=== PATIENT | female | born 1945 | race Caucasian/White ===

== ENCOUNTER 2021-10-03 14:55 | Inpatient (IN) | payer MEDICARE, OTHER ==
[2021-10-03] MEDS ORDERED: Sodium Chloride 0.9% 10 ML Syringe FLUSH PRN (15:21)
[2021-10-03 16:36] LABS: CHLORIDE,CL 108 mmol/L (98-107); SODIUM,NA 144 mmol/L (136-145)
[2021-10-03 16:38] LABS: O2 DELIVERY DEVICE NASAL CANNULA; PCO2 ARTERIAL 30 mmHG (35-45)
[2021-10-03 16:39] LABS: BICARBONATE,ARTERIAL 20.6 mmol/L (22-26); O2 SATURATION ARTERIAL 95 % (95-98); PO2 ARTERIAL 71 mmHG (80-105)
[2021-10-03 16:40] LABS: BASE EXCESS ARTERIAL -2 mmol/L (-2-3)
--- NOTE | 2021-10-03 16:41 | EDM.PDOC ---
ED HPI GENERAL MEDICAL PROBLEM - General Chief Complaint: Respiratory Problem Stated Complaint: chest pain, SOB Time Seen by Provider: 10/03/21 15:20 Source of Information: Reports: Patient History Limitations: Reports: No Limitations - History of Present Illness INITIAL COMMENTS - FREE TEXT/NARRATIVE: Patient presents to the Ed with shortness of breath, episode of syncope by EMS. 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 She states she has been dealing with a cough, shortness of breath and fatigue for the last month. She was seen by her PCP and started on some inhalers for this after a normal work up of labs, ekg and chest x-ray yesterday. She did drive herself to [place] with her granddaughter. She was advised to get a Chest CT with PE protocol by her doctor yesterday on her way home to rule out PE due to history of PE < 5 yesterday ago following surgery. She had been maintained on coumadin up until a month ago. She was unable to find the imaging center in [place] yesterday on her way home so she decided to just go home because she was tired. She struggled to get herself into the house due to fatigue and shortness of breath so once inside she rested on a kitchen chair. She had a syncopal event and awoke on the floor. No loss of bowel or bladder, was too weak to get herself up off the floor so slid/crawled to her bed and managed to get in. Stayed there all night. This morning her attempted to get out of bed but was too weak. Her doctors office called to see if she had gotten the chest ct and when they heard of the events that had transpired, told her to call ems. EMS was dispatched. it was not reported the O2 sat, but they placed her on 15 lpm NRB. They did decrease this over transport to 5 lpm with sats in mid 90s. afebrile. on Room air at traige she is 88%, placed on 4-5 lpm NC. no sick contacts, fully vaccinated with booster dose two weeks ago. did start coumadin yesteday x 1 dose at the instruction of her physician . Onset: Sudden Onset Date: 10/02/21 Duration: Constant Associated Symptoms: Reports: Malaise, Syncope, Weakness Treatments PROPOSAL REP: Reports: Other (see below) (one dose of coumadin) - Related Data Allergies Allergy/AdvReac Type Severity Reaction Status Date / Time aspirin Allergy Airway Verified 10/03/21 16:46 Tightness Home Meds: Home Meds Ferrous Sulfate 325 mg PO Q2D 10/03/21 [History] Fluticasone/Salmeterol [Advair 500-50] 2 puff INH BID 10/03/21 [History] Montelukast [Singulair] 10 mg PO DAILY 10/03/21 [History] Warfarin [Coumadin] 5 mg PO DAILY@1000 10/03/21 [History] Past Medical History Respiratory History: Reports: PE - Past Surgical History Musculoskeletal Surgical History: Reports: Joint Replacement (bilateral fareed) Social & Family History - Tobacco Use Tobacco Use Status *Q: Never Tobacco User - Alcohol Use Alcohol Use History: Yes Alcohol Use in Last Twelve Months: Yes Alcohol Use Frequency: Socially - Recreational Drug Use Recreational Drug Use: No Drug Use in Last 12 Months: No - Living Situation & Occupation Living situation: Reports: Alone ED ROS GENERAL - Review of Systems Review Of Systems: See Below Constitutional: Reports: Malaise, Weakness, Fatigue HEENT: Denies: Eye Discharge, Nose Pain, Rhinitis, Sinus Problem, Throat Pain, Throat Swelling Respiratory: Reports: Shortness of Breath, Cough. Denies: Pleuritic Chest Pain, Sputum, Hemoptysis Cardiovascular: Reports: No Symptoms, Dyspnea on Exertion, Lightheadedness, Syncope GI/Abdominal: Reports: No Symptoms. Denies: Abdominal Pain, Diarrhea, Nausea, Vomiting : Reports: No Symptoms Musculoskeletal: Reports: No Symptoms Neurological: Reports: Syncope, Weakness Psychiatric: Reports: No Symptoms Hematologic/Lymphatic: Reports: No Symptoms Immunologic: Reports: No Symptoms ED EXAM, GENERAL - Physical Exam Exam: See Below Exam Limited By: No Limitations General Appearance: Alert, WD/WN, No Apparent Distress Eye Exam: Bilateral Eye: EOMI, Normal Inspection, PERRL Ears: Normal External Exam Nose: Normal Inspection Throat/Mouth: Normal Inspection, Normal Lips, Normal Oropharynx, Normal Voice, No Airway Compromise Head: Atraumatic Neck: Normal Inspection Respiratory/Chest: No Respiratory Distress, Lungs Clear, Normal Breath Sounds, No Accessory Muscle Use, Chest Non-Tender Cardiovascular: Normal Peripheral Pulses, Regular Rate, Rhythm GI/Abdominal: Normal Bowel Sounds, Soft, Non-Tender, No Distention, No Abnormal Bruit. No: Rigid, Rebound Extremities: Normal Inspection, Normal Range of Motion, Non-Tender, No Pedal Edema, Normal Capillary Refill Neurological: Alert, Oriented, CN II-XII Intact, Normal Cognition, No Motor/Sensory Deficits, Other (normal finger to nose with eyes closed, YAA, negative pronator drift, noraml heel to mehta, normal stength upper and lower extremities, normal speech. ahs capacity) #1 Interpretation EKG Date: 10/03/21 Time: 15:08 Rhythm: NSR Rate (Beats/Min): 98 [employer]: Normal P-Wave: Present QRS: Normal ST-T: Normal QT: Normal Course - Vital Signs Last Recorded V/S: Last Vital Signs Temp 36.2 C 10/03/21 18:25 Pulse 98 10/03/21 18:25 Resp 20 10/03/21 18:25 BP 134/65 10/03/21 18:25 Pulse Ox 98 10/03/21 18:25 - Orders/Labs/Meds Orders: Active Orders 24 hr Category Date Time Status Admission Status [Patient Status] [ADT] Routine ADT 10/03/21 17:49 Active Cardiac Monitoring Discontinue [RC] Click to Edit Care 10/03/21 15:21 Active Oxygen Therapy Adult [Oxygen Therapy, ED] [RC] Care 10/03/21 15:21 Active ASDIRECTED Peripheral IV Care [RC] . DIRECTED Care 10/03/21 15:22 Active Ang Chest [CT] Stat Exams 10/03/21 16:42 Taken CULTURE BLOOD [BC] Stat Lab 10/03/21 16:01 Received CULTURE BLOOD [BC] Stat Lab 10/03/21 16:08 Received Heparin Sodium/0.45% NaCl [Heparin 25,000 Units in 1/2 Med 10/03/21 17:00 Active NS 500 ML] 500 ml IV TITRATE Sodium Chloride 0.9% [Saline Flush] Med 10/03/21 15:21 Active 10 ml FLUSH ASDIRECTED PRN Blood Culture x2 Reflex Set [OM.PC] Stat Oth 10/03/21 15:22 Ordered Peripheral IV Insertion Adult [OM.PC] Routine Oth 10/03/21 15:21 Ordered Medication Orders Acetaminophen (Acetaminophen 325 Mg Tab) 650 mg PO Q4H PRN PRN Reason: analgesia/fever Calcium Carbonate/Glycine (Calcium Carbonate 500 Mg Tab.Chew) 500 mg PO Q4H PRN PRN Reason: Dyspepsia Ferrous Sulfate (Ferrous Sulfate 325 Mg Tab) 325 mg PO Q2D MANJU Heparin Sodium/Sodium Chloride (Heparin 25,000 Units In 1/2 Ns 500 Ml) 500 mls @ 21.772 mls/hr IV TITRATE MANJU; Protocol Last Admin: 10/03/21 18:18 Dose: 12 units/kg/hr, 21.772 mls/hr Documented by: YESSENIA Cosigned by: ANA Melatonin (Melatonin 3 Mg Tab) 6 mg PO BEDTIME PRN PRN Reason: Insomnia Montelukast Sodium (Montelukast 10 Mg Tab) 10 mg PO DAILY MANJU Non-Formulary Medication (Fluticasone/Salmeterol) 2 puff INH BID MANJU Sodium Chloride (Sodium Chloride 0.9% 10 Ml Syringe) 10 ml FLUSH ASDIRECTED PRN PRN Reason: Keep Vein Open Labs: Laboratory Tests 10/03/21 10/03/21 10/03/21 Range/Units 16:00 16:01 16:01 WBC 10.2 (4.0-10.2) K/uL RBC 5.08 (3.77-5.09) M/uL Hgb 13.8 (11.7-15.5) g/dL Hct 41.5 (34.0-46.0) % MCV 81.7 L (84.0-98.0) fL MCH 27.2 L (28.2-33.3) pg MCHC 33.3 (31.7-36.0) g/dL RDW 20.7 H (11.2-14.1) % Plt Count 243 (150-350) K/uL Neut % (Auto) 73.0 (45.0-80.0) % Lymph % (Auto) 15.5 (10.0-50.0) % Frio % (Auto) 10.9 (2.0-14.0) % Eos % (Auto) 0.3 (0.0-5.0) % Baso % (Auto) 0.3 (0.0-2.0) % Neut # (Auto) 7.47 H (1.40-7.00) K/uL Lymph # (Auto) 1.58 (0.50-3.50) K/uL Frio # (Auto) 1.11 H (0.00-1.00) K/uL Eos # (Auto) 0.03 (0.00-0.50) K/uL Baso # (Auto) 0.03 (0.00-0.20) K/uL PT (9.6-11.3) SEC INR D-Dimer, Quantitative 4250 H (0-400) ng/mL ABG pH (7.35-7.45) ABG pCO2 (35-45) mmHG ABG pO2 (80-105) mmHG ABG HCO3 (22-26) mmol/L ABG Total CO2 (23-27) mmol/L ABG O2 Saturation (95-98) % ABG Base Excess (-2-3) mmol/L O2 Delivery Device Blood Gas Comments Sodium (136-145) mmol/L Potassium (3.5-5.1) mmol/L Chloride (98-107) mmol/L Carbon Dioxide (21.0-32.0) mmol/L Anion Gap (7-15) meq/L BUN (7-18) mg/dL Creatinine (0.51-1.17) mg/dL Est Cr Clr Drug Dosing Estimated GFR (MDRD) mL/min Glucose (70-99) mg/dL Lactic Acid (0.4-2.0) mmol/L Calcium (8.5-10.1) mg/dL Total Bilirubin (0.2-1.0) mg/dL AST (15-37) U/L ALT (12-78) U/L Alkaline Phosphatase (46-116) IU/L Troponin I High Sens (<=51) ng/L C-Reactive Protein (<=0.9) mg/dL Total Protein (6.4-8.2) g/dL Albumin (3.4-5.0) g/dL Influenza Type A RNA Negative (NEGATIVE) RSV RNA (INAAT) Negative (NEGATIVE) Influenza Type B RNA Negative (NEGATIVE) SARS-CoV-2 RNA (TY) Negative (NEGATIVE) 10/03/21 10/03/21 10/03/21 Range/Units 16:01 16:01 16:01 WBC (4.0-10.2) K/uL RBC (3.77-5.09) M/uL Hgb (11.7-15.5) g/dL Hct (34.0-46.0) % MCV (84.0-98.0) fL MCH (28.2-33.3) pg MCHC (31.7-36.0) g/dL RDW (11.2-14.1) % Plt Count (150-350) K/uL Neut % (Auto) (45.0-80.0) % Lymph % (Auto) (10.0-50.0) % Frio % (Auto) (2.0-14.0) % Eos % (Auto) (0.0-5.0) % Baso % (Auto) (0.0-2.0) % Neut # (Auto) (1.40-7.00) K/uL Lymph # (Auto) (0.50-3.50) K/uL Frio # (Auto) (0.00-1.00) K/uL Eos # (Auto) (0.00-0.50) K/uL Baso # (Auto) (0.00-0.20) K/uL PT 10.3 (9.6-11.3) SEC INR 1.0 D-Dimer, Quantitative (0-400) ng/mL ABG pH (7.35-7.45) ABG pCO2 (35-45) mmHG ABG pO2 (80-105) mmHG ABG HCO3 (22-26) mmol/L ABG Total CO2 (23-27) mmol/L ABG O2 Saturation (95-98) % ABG Base Excess (-2-3) mmol/L O2 Delivery Device Blood Gas Comments Sodium 144 (136-145) mmol/L Potassium 4.2 (3.5-5.1) mmol/L Chloride 108 H (98-107) mmol/L Carbon Dioxide 22.5 (21.0-32.0) mmol/L Anion Gap 17.7 H (7-15) meq/L BUN 20 H (7-18) mg/dL Creatinine 1.26 H (0.51-1.17) mg/dL Est Cr Clr Drug Dosing TNP Estimated GFR (MDRD) 41 mL/min Glucose 97 (70-99) mg/dL Lactic Acid 1.7 (0.4-2.0) mmol/L Calcium 9.2 (8.5-10.1) mg/dL Total Bilirubin 0.4 (0.2-1.0) mg/dL AST 30 (15-37) U/L ALT 24 (12-78) U/L Alkaline Phosphatase 165 H (46-116) IU/L Troponin I High Sens 318 H* (<=51) ng/L C-Reactive Protein 2.1 H (<=0.9) mg/dL Total Protein 7.7 (6.4-8.2) g/dL Albumin 3.6 (3.4-5.0) g/dL Influenza Type A RNA (NEGATIVE) RSV RNA (INAAT) (NEGATIVE) Influenza Type B RNA (NEGATIVE) SARS-CoV-2 RNA (TY) (NEGATIVE) 10/03/21 Range/Units 16:34 WBC (4.0-10.2) K/uL RBC (3.77-5.09) M/uL Hgb (11.7-15.5) g/dL Hct (34.0-46.0) % MCV (84.0-98.0) fL MCH (28.2-33.3) pg MCHC (31.7-36.0) g/dL RDW (11.2-14.1) % Plt Count (150-350) K/uL Neut % (Auto) (45.0-80.0) % Lymph % (Auto) (10.0-50.0) % Frio % (Auto) (2.0-14.0) % Eos % (Auto) (0.0-5.0) % Baso % (Auto) (0.0-2.0) % Neut # (Auto) (1.40-7.00) K/uL Lymph # (Auto) (0.50-3.50) K/uL Frio # (Auto) (0.00-1.00) K/uL Eos # (Auto) (0.00-0.50) K/uL Baso # (Auto) (0.00-0.20) K/uL PT (9.6-11.3) SEC INR D-Dimer, Quantitative (0-400) ng/mL ABG pH 7.45 (7.35-7.45) ABG pCO2 30 L (35-45) mmHG ABG pO2 71 L* (80-105) mmHG ABG HCO3 20.6 L (22-26) mmol/L ABG Total CO2 21 L (23-27) mmol/L ABG O2 Saturation 95 (95-98) % ABG Base Excess -2 (-2-3) mmol/L O2 Delivery Device Nasal cannula Blood Gas Comments 5 mins liter Sodium (136-145) mmol/L Potassium (3.5-5.1) mmol/L Chloride (98-107) mmol/L Carbon Dioxide (21.0-32.0) mmol/L Anion Gap (7-15) meq/L BUN (7-18) mg/dL Creatinine (0.51-1.17) mg/dL Est Cr Clr Drug Dosing Estimated GFR (MDRD) mL/min Glucose (70-99) mg/dL Lactic Acid (0.4-2.0) mmol/L Calcium (8.5-10.1) mg/dL Total Bilirubin (0.2-1.0) mg/dL AST (15-37) U/L ALT (12-78) U/L Alkaline Phosphatase (46-116) IU/L Troponin I High Sens (<=51) ng/L C-Reactive Protein (<=0.9) mg/dL Total Protein (6.4-8.2) g/dL Albumin (3.4-5.0) g/dL Influenza Type A RNA (NEGATIVE) RSV RNA (INAAT) (NEGATIVE) Influenza Type B RNA (NEGATIVE) SARS-CoV-2 RNA (TY) (NEGATIVE) Meds: Medications Generic Name Dose Route Start Last Admin Trade Name Freq PRN Reason Stop Dose Admin Acetaminophen 650 mg 10/03/21 19:49 Acetaminophen 325 Mg Tab PO Q4H PRN analgesia/fever Calcium Carbonate/Glycine 500 mg 10/03/21 19:49 Calcium Carbonate 500 Mg Tab.Chew PO Q4H PRN Dyspepsia Ferrous Sulfate 325 mg 10/03/21 20:00 Ferrous Sulfate 325 Mg Tab PO Q2D MANJU Heparin Sodium/Sodium Chloride 500 mls @ 21.772 mls/hr 10/03/21 17:00 10/03/21 18:18 Heparin 25,000 Units In 1/2 Ns 500 Ml IV 12 units/kg/hr TITRATE MANJU 21.772 mls/hr Administration Protocol 12 UNITS/KG/HR Melatonin 6 mg 10/03/21 19:49 Melatonin 3 Mg Tab PO BEDTIME PRN Insomnia Montelukast Sodium 10 mg 10/04/21 08:00 Montelukast 10 Mg Tab PO DAILY MANJU Non-Formulary Medication 2 puff 10/04/21 08:00 Fluticasone/Salmeterol INH BID MANJU Sodium Chloride 10 ml 10/03/21 15:21 Sodium Chloride 0.9% 10 Ml Syringe FLUSH ASDIRECTED PRN Keep Vein Open Discontinued Medications Generic Name Dose Route Start Last Admin Trade Name Freq PRN Reason Stop Dose Admin Heparin Sodium (Porcine) Confirm 10/03/21 17:29 10/03/21 18:18 Heparin Sodium 5,000 Units/Ml Vial Administered 10/03/21 17:30 Not Given Dose 5,000 units .ROUTE .STK-MED ONE Heparin Sodium (Porcine) 4,000 units 10/03/21 17:37 10/03/21 18:00 Heparin Sodium 5,000 Units/Ml Vial IVPUSH 10/03/21 17:38 4,000 units ONETIME ONE Administration Iopamidol 100 ml 10/03/21 16:46 10/03/21 17:27 Iopamidol 755 Mg/Ml 100 Ml Bottle IVPUSH 10/03/21 16:47 100 ml ONETIME STA Administration - Radiology Interpretation Free Text/Narrative:: discussed ct with radiologist. multiple bilateral Pulmonary with right heart strain. no other acute findings. see report - Re-Assessments/Exams Free Text/Narrative Re-Assessment/Exam: will check ekg, on telemetry, coid/rsv flu. Needs labs. ddimer is positive and elevated troponin. need CT PE protocol chest to rule out pe and right heart strain, allergic to aspirin. heparin bolus 4000 units an then drip at 1000 units/hr 10/03/21 16:58 10/03/21 17:53 CT with multiple bilateral pulmonary emboli with right heart strain, elevated troponin due to this. Ultrasound was here today, unable to get dopplers or echocardiogram until next week. heparin bolus 4000 units then 12/ units/kg/hr drip. allergic to aspirin. negative for covid, Maintaining sats at 4-5 lpm nc. admission needed. No chest pain. 10/03/21 19:56 Departure - Departure Time of Disposition: 17:52 Disposition: Admitted As Inpatient 65 Condition: Good Clinical Impression: Pulmonary emboli, Hypoxia, Elevated troponin - Discharge Information Sepsis Event Note (ED) - Focused Exam Vital Signs: Vital Signs Temp Pulse Resp BP Pulse Ox Pulse Ox 10/03/21 17:30 96 17 102/66 98 10/03/21 17:00 97 16 145/88 H 97 10/03/21 16:30 97 19 152/85 H 97 10/03/21 16:00 97 18 155/55 H 97 10/03/21 15:30 99 18 142/84 H 97 10/03/21 15:21 92 L 10/03/21 15:00 36.9 C 103 H 20 157/82 H 88 L - My Orders Last 24 Hours: My Active Orders 10/03/21 15:21 Cardiac Monitoring Discontinue [RC] Click to Edit Oxygen Therapy Adult [Oxygen Therapy, ED] [RC] ASDIRECTED Sodium Chloride 0.9% [Saline Flush] 10 ml FLUSH ASDIRECTED PRN Peripheral IV Insertion Adult [OM.PC] Routine 10/03/21 15:22 Peripheral IV Care [RC] . DIRECTED Blood Culture x2 Reflex Set [OM.PC] Stat 10/03/21 16:01 CULTURE BLOOD [BC] Stat 10/03/21 16:08 CULTURE BLOOD [BC] Stat 10/03/21 16:42 Ang Chest [CT] Stat 10/03/21 17:00 Heparin Sodium/0.45% NaCl [Heparin 25,000 Units in 1/2 NS 500 ML] 500 ml IV TITRATE 10/03/21 17:49 Admission Status [Patient Status] [ADT] Routine - Assessment/Plan Last 24 Hours: My Active Orders 10/03/21 15:21 Cardiac Monitoring Discontinue [RC] Click to Edit Oxygen Therapy Adult [Oxygen Therapy, ED] [RC] ASDIRECTED Sodium Chloride 0.9% [Saline Flush] 10 ml FLUSH ASDIRECTED PRN Peripheral IV Insertion Adult [OM.PC] Routine 10/03/21 15:22 Peripheral IV Care [RC] . DIRECTED Blood Culture x2 Reflex Set [OM.PC] Stat 10/03/21 16:01 CULTURE BLOOD [BC] Stat 10/03/21 16:08 CULTURE BLOOD [BC] Stat 10/03/21 16:42 Ang Chest [CT] Stat 10/03/21 17:00 Heparin Sodium/0.45% NaCl [Heparin 25,000 Units in 1/2 NS 500 ML] 500 ml IV TITRATE 10/03/21 17:49 Admission Status [Patient Status] [ADT] Routine
[2021-10-03 16:42] LABS: ANION GAP 17.7 meq/L (7-15)
[2021-10-03] MEDS ORDERED: Iopamidol 755 Mg/ML 100 ML Bottle IVPUSH STA (16:46)
[2021-10-03 16:55] LABS: CORONAVIRUS COVID-19 NAA NEGATIVE (NEGATIVE); RESPIRATORY SYNCYTIAL VIR NAA NEGATIVE (NEGATIVE)
[2021-10-03] MEDS ORDERED: Heparin Sodium 5,000 Units/ML Vial ONE (17:29)
[2021-10-03] MEDS ORDERED: Heparin Sodium 5,000 Units/ML Vial IVPUSH ONE (17:37)
[2021-10-03] MEDS: Heparin Sodium/0.45% NaCl 500 ML IV SCH (18:18)
[2021-10-03] MEDS ORDERED: Melatonin 3 MG Tab PO PRN (19:49)
[2021-10-03] MEDS ORDERED: Calcium Carbonate 500 MG Tab.Chew PO PRN (19:49)
[2021-10-03] MEDS ORDERED: Ferrous Sulfate 325 MG Tab PO SCH (20:00)
--- NOTE | 2021-10-03 22:02 | PCM.SN.2 ---
- Free Text/Narrative Note: Call to [facility] to discuss patient. I do not have a reason for why she has blood clots. Concern that no echocardiogram or dopplers here for a week. Discussed with cardiology and they stated that as long as she is on heparin, that is the treatment she needs. Also as long as she is improving, outpatient echo and dopplers could be done. recommends eliquis over coumadin for outpatient treatment. No saddle clot, decompensation and is maintaining well on low dose oxygen. Patient is took weak to return home at this time. Will need PT consult tomorrow
[2021-10-04 07:51] LABS: ANION GAP 10.2 meq/L (7-15)
--- NOTE | 2021-10-04 07:56 | PCM.PN ---
- General Info Date of Service: 10/04/21 Admission Dx/Problem (Free Text): Admission Diagnosis/Problem Admission Diagnosis/Problem Pulmonary embolism with hypoxia Subjective Update: Patient did weel overnight. feeling better and now able to ambulate. Maintaining on 3-4 liter by nasal canula. Had heparin bolus and on drip. Will need to transition to eliquis and quantify need for home o2. outpatient follow up for echocardiogram and dopplers. Functional Status: Reports: Tolerating Diet, Ambulating, Incentive Spirometry - Review of Systems General: Reports: No Symptoms HEENT: Reports: No Symptoms Pulmonary: Reports: Shortness of Breath, Cough. Denies: Hemoptysis, Wheezing Cardiovascular: Denies: Chest Pain, Palpitations, Dyspnea on Exertion, Orthopnea, Edema Gastrointestinal: Reports: No Symptoms Genitourinary: Reports: No Symptoms Musculoskeletal: Reports: No Symptoms Skin: Reports: No Symptoms Neurological: Reports: No Symptoms - Patient Data Vitals - Most Recent: Last Vital Signs Temp 36.8 C 10/03/21 20:00 Pulse 100 10/03/21 20:00 Resp 16 10/03/21 20:00 BP 175/110 H 10/03/21 20:00 Pulse Ox 90 L 10/03/21 20:00 Weight - Most Recent: 90.775 kg I&O - Last 24 Hours: Intake & Output 10/03/21 10/04/21 10/04/21 22:59 06:59 14:59 Intake Total 120 248 Balance 120 248 Lab Results Last 24 Hours: Laboratory Results - last 24 hr 10/03/21 10/03/21 10/03/21 Range/Units 16:00 16:01 16:01 WBC 10.2 (4.0-10.2) K/uL RBC 5.08 (3.77-5.09) M/uL Hgb 13.8 (11.7-15.5) g/dL Hct 41.5 (34.0-46.0) % MCV 81.7 L (84.0-98.0) fL MCH 27.2 L (28.2-33.3) pg MCHC 33.3 (31.7-36.0) g/dL RDW 20.7 H (11.2-14.1) % Plt Count 243 (150-350) K/uL Neut % (Auto) 73.0 (45.0-80.0) % Lymph % (Auto) 15.5 (10.0-50.0) % [place] % (Auto) 10.9 (2.0-14.0) % Eos % (Auto) 0.3 (0.0-5.0) % Baso % (Auto) 0.3 (0.0-2.0) % Neut # (Auto) 7.47 H (1.40-7.00) K/uL Lymph # (Auto) 1.58 (0.50-3.50) K/uL [place] # (Auto) 1.11 H (0.00-1.00) K/uL Eos # (Auto) 0.03 (0.00-0.50) K/uL Baso # (Auto) 0.03 (0.00-0.20) K/uL PT (9.6-11.3) SEC INR D-Dimer, Quantitative 4250 H (0-400) ng/mL ABG pH (7.35-7.45) ABG pCO2 (35-45) mmHG ABG pO2 (80-105) mmHG ABG HCO3 (22-26) mmol/L ABG Total CO2 (23-27) mmol/L ABG O2 Saturation (95-98) % ABG Base Excess (-2-3) mmol/L O2 Delivery Device Blood Gas Comments Sodium (136-145) mmol/L Potassium (3.5-5.1) mmol/L Chloride (98-107) mmol/L Carbon Dioxide (21.0-32.0) mmol/L Anion Gap (7-15) meq/L BUN (7-18) mg/dL Creatinine (0.51-1.17) mg/dL Est Cr Clr Drug Dosing Estimated GFR (MDRD) mL/min Glucose (70-99) mg/dL Lactic Acid (0.4-2.0) mmol/L Calcium (8.5-10.1) mg/dL Total Bilirubin (0.2-1.0) mg/dL AST (15-37) U/L ALT (12-78) U/L Alkaline Phosphatase (46-116) IU/L Troponin I High Sens (<=51) ng/L C-Reactive Protein (<=0.9) mg/dL Total Protein (6.4-8.2) g/dL Albumin (3.4-5.0) g/dL Influenza Type A RNA Negative (NEGATIVE) RSV RNA (INAAT) Negative (NEGATIVE) Influenza Type B RNA Negative (NEGATIVE) SARS-CoV-2 RNA (TY) Negative (NEGATIVE) 10/03/21 10/03/21 10/03/21 Range/Units 16:01 16:01 16:01 WBC (4.0-10.2) K/uL RBC (3.77-5.09) M/uL Hgb (11.7-15.5) g/dL Hct (34.0-46.0) % MCV (84.0-98.0) fL MCH (28.2-33.3) pg MCHC (31.7-36.0) g/dL RDW (11.2-14.1) % Plt Count (150-350) K/uL Neut % (Auto) (45.0-80.0) % Lymph % (Auto) (10.0-50.0) % [place] % (Auto) (2.0-14.0) % Eos % (Auto) (0.0-5.0) % Baso % (Auto) (0.0-2.0) % Neut # (Auto) (1.40-7.00) K/uL Lymph # (Auto) (0.50-3.50) K/uL [place] # (Auto) (0.00-1.00) K/uL Eos # (Auto) (0.00-0.50) K/uL Baso # (Auto) (0.00-0.20) K/uL PT 10.3 (9.6-11.3) SEC INR 1.0 D-Dimer, Quantitative (0-400) ng/mL ABG pH (7.35-7.45) ABG pCO2 (35-45) mmHG ABG pO2 (80-105) mmHG ABG HCO3 (22-26) mmol/L ABG Total CO2 (23-27) mmol/L ABG O2 Saturation (95-98) % ABG Base Excess (-2-3) mmol/L O2 Delivery Device Blood Gas Comments Sodium 144 (136-145) mmol/L Potassium 4.2 (3.5-5.1) mmol/L Chloride 108 H (98-107) mmol/L Carbon Dioxide 22.5 (21.0-32.0) mmol/L Anion Gap 17.7 H (7-15) meq/L BUN 20 H (7-18) mg/dL Creatinine 1.26 H (0.51-1.17) mg/dL Est Cr Clr Drug Dosing TNP Estimated GFR (MDRD) 41 mL/min Glucose 97 (70-99) mg/dL Lactic Acid 1.7 (0.4-2.0) mmol/L Calcium 9.2 (8.5-10.1) mg/dL Total Bilirubin 0.4 (0.2-1.0) mg/dL AST 30 (15-37) U/L ALT 24 (12-78) U/L Alkaline Phosphatase 165 H (46-116) IU/L Troponin I High Sens 318 H* (<=51) ng/L C-Reactive Protein 2.1 H (<=0.9) mg/dL Total Protein 7.7 (6.4-8.2) g/dL Albumin 3.6 (3.4-5.0) g/dL Influenza Type A RNA (NEGATIVE) RSV RNA (INAAT) (NEGATIVE) Influenza Type B RNA (NEGATIVE) SARS-CoV-2 RNA (TY) (NEGATIVE) 10/03/21 10/03/21 10/04/21 Range/Units 16:34 20:02 07:12 WBC 10.3 H (4.0-10.2) K/uL RBC 4.32 (3.77-5.09) M/uL Hgb 11.7 D (11.7-15.5) g/dL Hct 35.7 (34.0-46.0) % MCV 82.6 L (84.0-98.0) fL MCH 27.1 L (28.2-33.3) pg MCHC 32.8 (31.7-36.0) g/dL RDW 20.1 H (11.2-14.1) % Plt Count 216 (150-350) K/uL Neut % (Auto) 73.2 (45.0-80.0) % Lymph % (Auto) 14.6 (10.0-50.0) % [place] % (Auto) 10.7 (2.0-14.0) % Eos % (Auto) 1.2 (0.0-5.0) % Baso % (Auto) 0.3 (0.0-2.0) % Neut # (Auto) 7.55 H (1.40-7.00) K/uL Lymph # (Auto) 1.50 (0.50-3.50) K/uL [place] # (Auto) 1.10 H (0.00-1.00) K/uL Eos # (Auto) 0.12 (0.00-0.50) K/uL Baso # (Auto) 0.03 (0.00-0.20) K/uL PT (9.6-11.3) SEC INR D-Dimer, Quantitative (0-400) ng/mL ABG pH 7.45 (7.35-7.45) ABG pCO2 30 L (35-45) mmHG ABG pO2 71 L* (80-105) mmHG ABG HCO3 20.6 L (22-26) mmol/L ABG Total CO2 21 L (23-27) mmol/L ABG O2 Saturation 95 (95-98) % ABG Base Excess -2 (-2-3) mmol/L O2 Delivery Device Nasal cannula Blood Gas Comments 5 mins liter Sodium (136-145) mmol/L Potassium (3.5-5.1) mmol/L Chloride (98-107) mmol/L Carbon Dioxide (21.0-32.0) mmol/L Anion Gap (7-15) meq/L BUN (7-18) mg/dL Creatinine (0.51-1.17) mg/dL Est Cr Clr Drug Dosing Estimated GFR (MDRD) mL/min Glucose (70-99) mg/dL Lactic Acid (0.4-2.0) mmol/L Calcium (8.5-10.1) mg/dL Total Bilirubin (0.2-1.0) mg/dL AST (15-37) U/L ALT (12-78) U/L Alkaline Phosphatase (46-116) IU/L Troponin I High Sens 290 H* (<=51) ng/L C-Reactive Protein (<=0.9) mg/dL Total Protein (6.4-8.2) g/dL Albumin (3.4-5.0) g/dL Influenza Type A RNA (NEGATIVE) RSV RNA (INAAT) (NEGATIVE) Influenza Type B RNA (NEGATIVE) SARS-CoV-2 RNA (TY) (NEGATIVE) Med Orders - Current: Current Medications Acetaminophen (Acetaminophen 325 Mg Tab) 650 mg PO Q4H PRN PRN Reason: analgesia/fever Calcium Carbonate/Glycine (Calcium Carbonate 500 Mg Tab.Chew) 500 mg PO Q4H PRN PRN Reason: Dyspepsia Ferrous Sulfate (Ferrous Sulfate 325 Mg Tab) 325 mg PO Q2D MANJU Last Admin: 10/03/21 20:35 Dose: 325 mg Documented by: Heparin Sodium/Sodium Chloride (Heparin 25,000 Units In 1/2 Ns 500 Ml) 500 mls @ 21.772 mls/hr IV TITRATE MANJU; Protocol Last Admin: 10/03/21 18:18 Dose: 12 units/kg/hr, 21.772 mls/hr Documented by: Melatonin (Melatonin 3 Mg Tab) 6 mg PO BEDTIME PRN PRN Reason: Insomnia Mometasone Furoate/Formoterol Fumar (Formoterol/Mometasone 200-5 Mcg 8.8 Gm Inhaler) 2 puff IH BID MANJU Montelukast Sodium (Montelukast 10 Mg Tab) 10 mg PO DAILY MANJU Sodium Chloride (Sodium Chloride 0.9% 10 Ml Syringe) 10 ml FLUSH ASDIRECTED PRN PRN Reason: Keep Vein Open Discontinued Medications Heparin Sodium (Porcine) (Heparin Sodium 5,000 Units/Ml Vial) Confirm Administered Dose 5,000 units .ROUTE .STK-MED ONE Stop: 10/03/21 17:30 Last Admin: 10/03/21 18:18 Dose: Not Given Documented by: Heparin Sodium (Porcine) (Heparin Sodium 5,000 Units/Ml Vial) 4,000 units IVPUSH ONETIME ONE Stop: 10/03/21 17:38 Last Admin: 10/03/21 18:00 Dose: 4,000 units Documented by: Iopamidol (Iopamidol 755 Mg/Ml 100 Ml Bottle) 100 ml IVPUSH ONETIME STA Stop: 10/03/21 16:47 Last Admin: 10/03/21 17:27 Dose: 100 ml Documented by: - Exam Quality Assessment: Supplemental Oxygen General: Alert, Oriented HEENT: Pupils Equal, Pupils Reactive, EOMI Neck: Supple Lungs: Clear to Auscultation, Normal Respiratory Effort Cardiovascular: Regular Rate, Regular Rhythm GI/Abdominal Exam: Normal Bowel Sounds, Soft, Non-Tender Back Exam: Normal Inspection Extremities: Normal Inspection, Normal Range of Motion, Non-Tender Neurological: No New Focal Deficit Psy/Mental Status: Alert, Normal Affect - Patient Data Lab Results Last 24 hrs: Laboratory Results - last 24 hr 10/03/21 10/03/21 10/03/21 Range/Units 16:00 16:01 16:01 WBC 10.2 (4.0-10.2) K/uL RBC 5.08 (3.77-5.09) M/uL Hgb 13.8 (11.7-15.5) g/dL Hct 41.5 (34.0-46.0) % MCV 81.7 L (84.0-98.0) fL MCH 27.2 L (28.2-33.3) pg MCHC 33.3 (31.7-36.0) g/dL RDW 20.7 H (11.2-14.1) % Plt Count 243 (150-350) K/uL Neut % (Auto) 73.0 (45.0-80.0) % Lymph % (Auto) 15.5 (10.0-50.0) % [place] % (Auto) 10.9 (2.0-14.0) % Eos % (Auto) 0.3 (0.0-5.0) % Baso % (Auto) 0.3 (0.0-2.0) % Neut # (Auto) 7.47 H (1.40-7.00) K/uL Lymph # (Auto) 1.58 (0.50-3.50) K/uL [place] # (Auto) 1.11 H (0.00-1.00) K/uL Eos # (Auto) 0.03 (0.00-0.50) K/uL Baso # (Auto) 0.03 (0.00-0.20) K/uL PT (9.6-11.3) SEC INR D-Dimer, Quantitative 4250 H (0-400) ng/mL ABG pH (7.35-7.45) ABG pCO2 (35-45) mmHG ABG pO2 (80-105) mmHG ABG HCO3 (22-26) mmol/L ABG Total CO2 (23-27) mmol/L ABG O2 Saturation (95-98) % ABG Base Excess (-2-3) mmol/L O2 Delivery Device Blood Gas Comments Sodium (136-145) mmol/L Potassium (3.5-5.1) mmol/L Chloride (98-107) mmol/L Carbon Dioxide (21.0-32.0) mmol/L Anion Gap (7-15) meq/L BUN (7-18) mg/dL Creatinine (0.51-1.17) mg/dL Est Cr Clr Drug Dosing Estimated GFR (MDRD) mL/min Glucose (70-99) mg/dL Lactic Acid (0.4-2.0) mmol/L Calcium (8.5-10.1) mg/dL Total Bilirubin (0.2-1.0) mg/dL AST (15-37) U/L ALT (12-78) U/L Alkaline Phosphatase (46-116) IU/L Troponin I High Sens (<=51) ng/L C-Reactive Protein (<=0.9) mg/dL Total Protein (6.4-8.2) g/dL Albumin (3.4-5.0) g/dL Influenza Type A RNA Negative (NEGATIVE) RSV RNA (INAAT) Negative (NEGATIVE) Influenza Type B RNA Negative (NEGATIVE) SARS-CoV-2 RNA (TY) Negative (NEGATIVE) 10/03/21 10/03/21 10/03/21 Range/Units 16:01 16:01 16:01 WBC (4.0-10.2) K/uL RBC (3.77-5.09) M/uL Hgb (11.7-15.5) g/dL Hct (34.0-46.0) % MCV (84.0-98.0) fL MCH (28.2-33.3) pg MCHC (31.7-36.0) g/dL RDW (11.2-14.1) % Plt Count (150-350) K/uL Neut % (Auto) (45.0-80.0) % Lymph % (Auto) (10.0-50.0) % [place] % (Auto) (2.0-14.0) % Eos % (Auto) (0.0-5.0) % Baso % (Auto) (0.0-2.0) % Neut # (Auto) (1.40-7.00) K/uL Lymph # (Auto) (0.50-3.50) K/uL [place] # (Auto) (0.00-1.00) K/uL Eos # (Auto) (0.00-0.50) K/uL Baso # (Auto) (0.00-0.20) K/uL PT 10.3 (9.6-11.3) SEC INR 1.0 D-Dimer, Quantitative (0-400) ng/mL ABG pH (7.35-7.45) ABG pCO2 (35-45) mmHG ABG pO2 (80-105) mmHG ABG HCO3 (22-26) mmol/L ABG Total CO2 (23-27) mmol/L ABG O2 Saturation (95-98) % ABG Base Excess (-2-3) mmol/L O2 Delivery Device Blood Gas Comments Sodium 144 (136-145) mmol/L Potassium 4.2 (3.5-5.1) mmol/L Chloride 108 H (98-107) mmol/L Carbon Dioxide 22.5 (21.0-32.0) mmol/L Anion Gap 17.7 H (7-15) meq/L BUN 20 H (7-18) mg/dL Creatinine 1.26 H (0.51-1.17) mg/dL Est Cr Clr Drug Dosing TNP Estimated GFR (MDRD) 41 mL/min Glucose 97 (70-99) mg/dL Lactic Acid 1.7 (0.4-2.0) mmol/L Calcium 9.2 (8.5-10.1) mg/dL Total Bilirubin 0.4 (0.2-1.0) mg/dL AST 30 (15-37) U/L ALT 24 (12-78) U/L Alkaline Phosphatase 165 H (46-116) IU/L Troponin I High Sens 318 H* (<=51) ng/L C-Reactive Protein 2.1 H (<=0.9) mg/dL Total Protein 7.7 (6.4-8.2) g/dL Albumin 3.6 (3.4-5.0) g/dL Influenza Type A RNA (NEGATIVE) RSV RNA (INAAT) (NEGATIVE) Influenza Type B RNA (NEGATIVE) SARS-CoV-2 RNA (TY) (NEGATIVE) 10/03/21 10/03/21 10/04/21 Range/Units 16:34 20:02 07:12 WBC 10.3 H (4.0-10.2) K/uL RBC 4.32 (3.77-5.09) M/uL Hgb 11.7 D (11.7-15.5) g/dL Hct 35.7 (34.0-46.0) % MCV 82.6 L (84.0-98.0) fL MCH 27.1 L (28.2-33.3) pg MCHC 32.8 (31.7-36.0) g/dL RDW 20.1 H (11.2-14.1) % Plt Count 216 (150-350) K/uL Neut % (Auto) 73.2 (45.0-80.0) % Lymph % (Auto) 14.6 (10.0-50.0) % [place] % (Auto) 10.7 (2.0-14.0) % Eos % (Auto) 1.2 (0.0-5.0) % Baso % (Auto) 0.3 (0.0-2.0) % Neut # (Auto) 7.55 H (1.40-7.00) K/uL Lymph # (Auto) 1.50 (0.50-3.50) K/uL [place] # (Auto) 1.10 H (0.00-1.00) K/uL Eos # (Auto) 0.12 (0.00-0.50) K/uL Baso # (Auto) 0.03 (0.00-0.20) K/uL PT (9.6-11.3) SEC INR D-Dimer, Quantitative (0-400) ng/mL ABG pH 7.45 (7.35-7.45) ABG pCO2 30 L (35-45) mmHG ABG pO2 71 L* (80-105) mmHG ABG HCO3 20.6 L (22-26) mmol/L ABG Total CO2 21 L (23-27) mmol/L ABG O2 Saturation 95 (95-98) % ABG Base Excess -2 (-2-3) mmol/L O2 Delivery Device Nasal cannula trop Blood Gas Comments 5 mins liter Sodium (136-145) mmol/L Potassium (3.5-5.1) mmol/L Chloride (98-107) mmol/L Carbon Dioxide (21.0-32.0) mmol/L Anion Gap (7-15) meq/L BUN (7-18) mg/dL Creatinine (0.51-1.17) mg/dL Est Cr Clr Drug Dosing Estimated GFR (MDRD) mL/min Glucose (70-99) mg/dL Lactic Acid (0.4-2.0) mmol/L Calcium (8.5-10.1) mg/dL Total Bilirubin (0.2-1.0) mg/dL AST (15-37) U/L ALT (12-78) U/L Alkaline Phosphatase (46-116) IU/L Troponin I High Sens 290 H* (<=51) ng/L C-Reactive Protein (<=0.9) mg/dL Total Protein (6.4-8.2) g/dL Albumin (3.4-5.0) g/dL Influenza Type A RNA (NEGATIVE) RSV RNA (INAAT) (NEGATIVE) Influenza Type B RNA (NEGATIVE) SARS-CoV-2 RNA (TY) (NEGATIVE) troponin is 167 Result Diagrams: 10/04/21 07:12 10/04/21 07:12 Sepsis Event Note - Evaluation Sepsis Screening Result: No Definite Risk - Focused Exam Vital Signs: Vital Signs Temp Pulse Resp BP Pulse Ox 10/03/21 20:00 36.8 C 100 16 175/110 H 90 L - Problem List & Annotations (1) Elevated troponin SNOMED Code(s): 904327024, 214303686, 222620107 Code(s): R77.8 - OTHER SPECIFIED ABNORMALITIES OF PLASMA PROTEINS Status: Acute Priority: Medium Current Visit: Yes Annotation/Comment:: elevated troponin due to right heart strain from PE, never any chest pain. No STEMI changes on EKG. resolving. Intial level was 318, then 290, now 167. Will continue to downtrend (2) Hypoxia SNOMED Code(s): 635805713 Code(s): R09.02 - HYPOXEMIA Status: Acute Priority: High Current Visit: Yes Annotation/Comment:: doing better on 3-4 liter by NC. Able to ambulate and will try to slowly wean down the oxygen today and see how she does and if she needs home O2. Continue breathing treatments and incentive spirometry (3) Pulmonary emboli SNOMED Code(s): 18307337 Code(s): I26.99 - OTHER PULMONARY EMBOLISM WITHOUT ACUTE COR PULMONALE Status: Acute Priority: High Current Visit: Yes Qualifiers: Chronicity: acute Acute cor pulmonale presence: without acute cor pulmonale Annotation/Comment:: Patient has multiple bilateral PE, slight heart strain. no dependent edema, no recent echocardiogram. recieved bolus heparin, on drip and tolerating well. History of use of coumadin for PE. Will place on eliquis for home and follow up outpatient for echocardiogram and dopplers of the carotids. - Problem List Review Problem List Initiated/Reviewed/Updated: Yes - My Orders Last 24 Hours: My Active Orders 10/03/21 15:21 Sodium Chloride 0.9% [Saline Flush] 10 ml FLUSH ASDIRECTED PRN Peripheral IV Insertion Adult [OM.PC] Routine 10/03/21 15:22 Peripheral IV Care [RC] 08,20 Blood Culture x2 Reflex Set [OM.PC] Stat 10/03/21 16:01 CULTURE BLOOD [BC] Stat 10/03/21 16:08 CULTURE BLOOD [BC] Stat 10/03/21 16:42 Ang Chest [CT] Stat 10/03/21 17:00 Heparin Sodium/0.45% NaCl [Heparin 25,000 Units in 1/2 NS 500 ML] 500 ml IV TITRATE 10/03/21 17:49 Admission Status [Patient Status] [ADT] Routine 10/03/21 19:44 Vital Signs [RC] Q4HWA Resuscitation Status Routine 10/03/21 19:49 Ambulate [RC] 08,20 February Shower [RC] 08,20 Pulse Oximetry [RC] Q4HWA RT Incentive Spirometry [RC] 0800 Up ad Faith [RC] 08,20 Acetaminophen [TylenoL] 650 mg PO Q4H PRN Calcium Carbonate [Tums] 500 mg PO Q4H PRN Melatonin 6 mg PO BEDTIME PRN 10/03/21 19:50 Oxygen Therapy [RC] 2300 10/03/21 20:00 Ferrous Sulfate 325 mg PO Q2D 10/03/21 22:02 PT Evaluation and Treatment [CONS] Routine 10/04/21 06:16 Cardiac Monitoring [RC] Q2HR 10/04/21 07:12 BASIC METABOLIC PANEL,BMP [CHEM] AM PTT,PARTIAL THROMBOPLSTIN TIME [COAG] DAILY TROPONIN I HIGH SENSITIVITY [CHEM] AM 10/04/21 Breakfast Regular Diet [DIET] 10/04/21 08:00 Mometasone/Formoterol [Dulera 200-5 MCG] 2 puff IH BID Montelukast [Singulair] 10 mg PO DAILY 10/05/21 05:11 BASIC METABOLIC PANEL,BMP [CHEM] AM CBC WITH AUTO DIFF [HEME] AM PTT,PARTIAL THROMBOPLSTIN TIME [COAG] DAILY TROPONIN I HIGH SENSITIVITY [CHEM] AM 10/06/21 05:11 BASIC METABOLIC PANEL,BMP [CHEM] AM CBC WITH AUTO DIFF [HEME] AM PTT,PARTIAL THROMBOPLSTIN TIME [COAG] DAILY TROPONIN I HIGH SENSITIVITY [CHEM] AM 10/07/21 05:11 PTT,PARTIAL THROMBOPLSTIN TIME [COAG] DAILY 10/08/21 05:11 PTT,PARTIAL THROMBOPLSTIN TIME [COAG] DAILY - Assessment Assessment:: pulmonary emboli with hypoxia - Plan Plan:: continue heparin drip, will need to transition to eliquis outpatient. will ambulate today, see how she does with adls. troponin is improving, continue to check. decrease oxygen as able
[2021-10-04] MEDS ORDERED: Montelukast 10 MG Tab PO SCH ×2 (08:00→20:00)
[2021-10-04] MEDS: Formoterol/Mometasone 200-5 MCG 8.8 GM Inhaler IH SCH ×2 (09:30→18:13)
[2021-10-04] MEDS: Heparin Sodium/0.45% NaCl 500 ML IV SCH (16:07)
[2021-10-04] MEDS: Acetaminophen 325 MG Tab PO PRN (20:19)
[2021-10-05] MEDS: Acetaminophen 325 MG Tab PO PRN (01:22)
[2021-10-05] MEDS: Formoterol/Mometasone 200-5 MCG 8.8 GM Inhaler IH SCH (08:13)
[2021-10-05 08:43] LABS: ANION GAP 13.1 meq/L (7-15)
[2021-10-05] MEDS ORDERED: Apixaban 5 MG Tab PO SCH (10:00)
--- NOTE | 2021-10-05 10:16 | PCM.PN ---
- General Info Date of Service: 10/05/21 Admission Dx/Problem (Free Text): Admission Diagnosis/Problem Admission Diagnosis/Problem Pulmonary embolism with hypoxia Subjective Update: Patient had done well overnight. Oxygen off and maintaining sats on RA. Still on Heparin gtt. Patient reports that she does not like how the Albuterol inhaler makes her mouth feel, wonders about an allergic reaction. She does fine with the Advair. Functional Status: Reports: Pain Controlled, Tolerating Diet, Incentive S pirometry - Review of Systems General: Reports: No Symptoms HEENT: Reports: No Symptoms Pulmonary: Reports: No Symptoms Cardiovascular: Reports: No Symptoms Gastrointestinal: Reports: No Symptoms Genitourinary: Reports: No Symptoms Musculoskeletal: Reports: No Symptoms Skin: Reports: No Symptoms Neurological: Reports: No Symptoms Psychiatric: Reports: No Symptoms - Patient Data Vitals - Most Recent: Last Vital Signs Temp 36.4 C 10/05/21 08:08 Pulse 96 10/05/21 08:08 Resp 18 10/05/21 08:08 BP 128/60 10/05/21 08:08 Pulse Ox 93 L 10/05/21 08:08 Weight - Most Recent: 90.775 kg I&O - Last 24 Hours: Intake & Output 10/04/21 10/05/21 10/05/21 22:59 06:59 14:59 Intake Total 360 400 200 Balance 360 400 200 Lab Results Last 24 Hours: Laboratory Results - last 24 hr 10/04/21 10/05/21 10/05/21 Range/Units 20:10 08:00 08:00 WBC 8.1 (4.0-10.2) K/uL RBC 4.92 (3.77-5.09) M/uL Hgb 13.3 D (11.7-15.5) g/dL Hct 40.3 (34.0-46.0) % MCV 81.9 L (84.0-98.0) fL MCH 27.0 L (28.2-33.3) pg MCHC 33.0 (31.7-36.0) g/dL RDW 19.6 H (11.2-14.1) % Plt Count 241 (150-350) K/uL Neut % (Auto) 68.9 (45.0-80.0) % Lymph % (Auto) 18.1 (10.0-50.0) % [place] % (Auto) 10.2 (2.0-14.0) % Eos % (Auto) 2.2 (0.0-5.0) % Baso % (Auto) 0.6 (0.0-2.0) % Neut # (Auto) 5.61 (1.40-7.00) K/uL Lymph # (Auto) 1.47 (0.50-3.50) K/uL [place] # (Auto) 0.83 (0.00-1.00) K/uL Eos # (Auto) 0.18 (0.00-0.50) K/uL Baso # (Auto) 0.05 (0.00-0.20) K/uL APTT 47.8 H 55.6 H (23.6-29.8) SEC Sodium (136-145) mmol/L Potassium (3.5-5.1) mmol/L Chloride (98-107) mmol/L Carbon Dioxide (21.0-32.0) mmol/L Anion Gap (7-15) meq/L BUN (7-18) mg/dL Creatinine (0.51-1.17) mg/dL Est Cr Clr Drug Dosing mL/min Estimated GFR (MDRD) mL/min Glucose (70-99) mg/dL Calcium (8.5-10.1) mg/dL Troponin I High Sens (<=51) ng/L 10/05/21 Range/Units 08:00 WBC (4.0-10.2) K/uL RBC (3.77-5.09) M/uL Hgb (11.7-15.5) g/dL Hct (34.0-46.0) % MCV (84.0-98.0) fL MCH (28.2-33.3) pg MCHC (31.7-36.0) g/dL RDW (11.2-14.1) % Plt Count (150-350) K/uL Neut % (Auto) (45.0-80.0) % Lymph % (Auto) (10.0-50.0) % [place] % (Auto) (2.0-14.0) % Eos % (Auto) (0.0-5.0) % Baso % (Auto) (0.0-2.0) % Neut # (Auto) (1.40-7.00) K/uL Lymph # (Auto) (0.50-3.50) K/uL [place] # (Auto) (0.00-1.00) K/uL Eos # (Auto) (0.00-0.50) K/uL Baso # (Auto) (0.00-0.20) K/uL APTT (23.6-29.8) SEC Sodium 142 (136-145) mmol/L Potassium 3.7 (3.5-5.1) mmol/L Chloride 109 H (98-107) mmol/L Carbon Dioxide 23.6 (21.0-32.0) mmol/L Anion Gap 13.1 (7-15) meq/L BUN 12 (7-18) mg/dL Creatinine 1.04 (0.51-1.17) mg/dL Est Cr Clr Drug Dosing 39.12 mL/min Estimated GFR (MDRD) 51 mL/min Glucose 118 H (70-99) mg/dL Calcium 8.9 (8.5-10.1) mg/dL Troponin I High Sens 65 H* (<=51) ng/L Steven Results Last 24 Hours: Microbiology 10/03/21 16:08 Aerobic Blood Culture - Preliminary Blood - Venous - Lab Draw NO GROWTH AFTER 1 DAY Anaerobic Blood Culture - Preliminary NO GROWTH AFTER 1 DAY 10/03/21 16:01 Aerobic Blood Culture - Preliminary Blood - Venous NO GROWTH AFTER 1 DAY Anaerobic Blood Culture - Preliminary NO GROWTH AFTER 1 DAY Med Orders - Current: Current Medications Acetaminophen (Acetaminophen 325 Mg Tab) 650 mg PO Q4H PRN PRN Reason: analgesia/fever Last Admin: 10/05/21 01:22 Dose: 650 mg Documented by: Apixaban (Apixaban 5 Mg Tab) 5 mg PO BID [facility] Last Admin: 10/05/21 10:01 Dose: 5 mg Documented by: Calcium Carbonate/Glycine (Calcium Carbonate 500 Mg Tab.Chew) 500 mg PO Q4H PRN PRN Reason: Dyspepsia Ferrous Sulfate (Ferrous Sulfate 325 Mg Tab) 325 mg PO Q2D [facility] Last Admin: 10/03/21 20:35 Dose: 325 mg Documented by: Melatonin (Melatonin 3 Mg Tab) 6 mg PO BEDTIME PRN PRN Reason: Insomnia Mometasone Furoate/Formoterol Fumar (Formoterol/Mometasone 200-5 Mcg 8.8 Gm Inhaler) 2 puff IH BID MANJU Last Admin: 10/05/21 08:13 Dose: 2 puff Documented by: Montelukast Sodium (Montelukast 10 Mg Tab) 10 mg PO BEDTIME MANJU Last Admin: 10/04/21 19:25 Dose: 10 mg Documented by: Sodium Chloride (Sodium Chloride 0.9% 10 Ml Syringe) 10 ml FLUSH ASDIRECTED PRN PRN Reason: Keep Vein Open Discontinued Medications Heparin Sodium (Porcine) (Heparin Sodium 5,000 Units/Ml Vial) Confirm Administ ered Dose 5,000 units .ROUTE .STK-MED ONE Stop: 10/03/21 17:30 Last Admin: 10/03/21 18:18 Dose: Not Given Documented by: Heparin Sodium (Porcine) (Heparin Sodium 5,000 Units/Ml Vial) 4,000 units IVPUSH ONETIME ONE Stop: 10/03/21 17:38 Last Admin: 10/03/21 18:00 Dose: 4,000 units Documented by: Heparin Sodium/Sodium Chloride (Heparin 25,000 Units In 1/2 Ns 500 Ml) 500 mls @ 21.772 mls/hr IV TITRATE MANJU; Protocol Last Admin: 10/04/21 16:07 Dose: 12 units/kg/hr, 21.772 mls/hr Documented by: Iopamidol (Iopamidol 755 Mg/Ml 100 Ml Bottle) 100 ml IVPUSH ONETIME STA Stop: 10/03/21 16:47 Last Admin: 10/03/21 17:27 Dose: 100 ml Documented by: Montelukast Sodium (Montelukast 10 Mg Tab) 10 mg PO DAILY [facility] Last Admin: 10/04/21 09:30 Dose: Not Given Documented by: - Exam General: Alert, Oriented, No Acute Distress (Elderly female) HEENT: Pupils Equal, Pupils Reactive, EOMI, Mucous Membr. Moist/[place] Neck: Supple Lungs: Clear to Auscultation, Normal Respiratory Effort Cardiovascular: Regular Rate, Regular Rhythm GI/Abdominal Exam: Normal Bowel Sounds, Soft, Non-Tender (Female) Exam: Deferred Back Exam: Normal Inspection Extremities: Normal Inspection, Normal Range of Motion Skin: Warm, Dry, Intact Neurological: No New Focal Deficit Psy/Mental Status: Alert, Normal Affect, Normal Mood - Patient Data Lab Results Last 24 hrs: Laboratory Results - last 24 hr 10/04/21 10/05/21 10/05/21 Range/Units 20:10 08:00 08:00 WBC 8.1 (4.0-10.2) K/uL RBC 4.92 (3.77-5.09) M/uL Hgb 13.3 D (11.7-15.5) g/dL Hct 40.3 (34.0-46.0) % MCV 81.9 L (84.0-98.0) fL MCH 27.0 L (28.2-33.3) pg MCHC 33.0 (31.7-36.0) g/dL RDW 19.6 H (11.2-14.1) % Plt Count 241 (150-350) K/uL Neut % (Auto) 68.9 (45.0-80.0) % Lymph % (Auto) 18.1 (10.0-50.0) % [place] % (Auto) 10.2 (2.0-14.0) % Eos % (Auto) 2.2 (0.0-5.0) % Baso % (Auto) 0.6 (0.0-2.0) % Neut # (Auto) 5.61 (1.40-7.00) K/uL Lymph # (Auto) 1.47 (0.50-3.50) K/uL [place] # (Auto) 0.83 (0.00-1.00) K/uL Eos # (Auto) 0.18 (0.00-0.50) K/uL Baso # (Auto) 0.05 (0.00-0.20) K/uL APTT 47.8 H 55.6 H (23.6-29.8) SEC Sodium (136-145) mmol/L Potassium (3.5-5.1) mmol/L Chloride (98-107) mmol/L Carbon Dioxide (21.0-32.0) mmol/L Anion Gap (7-15) meq/L BUN (7-18) mg/dL Creatinine (0.51-1.17) mg/dL Est Cr Clr Drug Dosing mL/min Estimated GFR (MDRD) mL/min Glucose (70-99) mg/dL Calcium (8.5-10.1) mg/dL Troponin I High Sens (<=51) ng/L 10/05/21 Range/Units 08:00 WBC (4.0-10.2) K/uL RBC (3.77-5.09) M/uL Hgb (11.7-15.5) g/dL Hct (34.0-46.0) % MCV (84.0-98.0) fL MCH (28.2-33.3) pg MCHC (31.7-36.0) g/dL RDW (11.2-14.1) % Plt Count (150-350) K/uL Neut % (Auto) (45.0-80.0) % Lymph % (Auto) (10.0-50.0) % [place] % (Auto) (2.0-14.0) % Eos % (Auto) (0.0-5.0) % Baso % (Auto) (0.0-2.0) % Neut # (Auto) (1.40-7.00) K/uL Lymph # (Auto) (0.50-3.50) K/uL [place] # (Auto) (0.00-1.00) K/uL Eos # (Auto) (0.00-0.50) K/uL Baso # (Auto) (0.00-0.20) K/uL APTT (23.6-29.8) SEC Sodium 142 (136-145) mmol/L Potassium 3.7 (3.5-5.1) mmol/L Chloride 109 H (98-107) mmol/L Carbon Dioxide 23.6 (21.0-32.0) mmol/L Anion Gap 13.1 (7-15) meq/L BUN 12 (7-18) mg/dL Creatinine 1.04 (0.51-1.17) mg/dL Est Cr Clr Drug Dosing 39.12 mL/min Estimated GFR (MDRD) 51 mL/min Glucose 118 H (70-99) mg/dL Calcium 8.9 (8.5-10.1) mg/dL Troponin I High Sens 65 H* (<=51) ng/L Result Diagrams: 10/05/21 08:00 10/05/21 08:00 Steven Results Last 24 hrs: Microbiology 10/03/21 16:08 Aerobic Blood Culture - Preliminary Blood - Venous - Lab Draw NO GROWTH AFTER 1 DAY Anaerobic Blood Culture - Preliminary NO GROWTH AFTER 1 DAY 10/03/21 16:01 Aerobic Blood Culture - Preliminary Blood - Venous NO GROWTH AFTER 1 DAY Anaerobic Blood Culture - Preliminary NO GROWTH AFTER 1 DAY Sepsis Event Note - Evaluation Sepsis Screening Result: No Definite Risk - Focused Exam Vital Signs: Vital Signs Temp Temp Pulse Resp BP Pulse Ox 10/05/21 08:08 36.4 C 96 18 128/60 93 L 10/05/21 08:00 93 L 10/05/21 01:00 37.2 C 89 18 175/89 H 92 L - Problem List & Annotations (1) Elevated troponin SNOMED Code(s): 566672021, 289359375, 402490736 Code(s): R77.8 - OTHER SPECIFIED ABNORMALITIES OF PLASMA PROTEINS Status: Acute Priority: Medium Current Visit: Yes Annotation/Comment:: No further chest pain and troponin decreasing. No further action. (2) Hypoxia SNOMED Code(s): 108999970 Code(s): R09.02 - HYPOXEMIA Status: Acute Priority: High Current Visit: Yes Annotation/Comment:: Has been on room air now since yesterday AM. Sats=93% this AM. Ambulating without any SOB. Using incentive spirometry. (3) Pulmonary emboli SNOMED Code(s): 88085942 Code(s): I26.99 - OTHER PULMONARY EMBOLISM WITHOUT ACUTE COR PULMONALE Status: Acute Priority: High Current Visit: Yes Qualifiers: Chronicity: acute Acute cor pulmonale presence: without acute cor pulmonale Annotation/Comment:: Multiple Bilateral PE present, has hx of PEs in past with Coumadin use. Heparin gtt overnight and now have started Eliquis and plan to send pt home. Will have PCP coordinate outpatient echocardiogram and carotid dopplers. Patient has PCP in [facility]. - Problem List Review Problem List Initiated/Reviewed/Updated: Yes - My Orders Last 24 Hours: My Active Orders 10/05/21 10:00 Apixaban [Eliquis] 5 mg PO BID - Plan Plan:: -See above -Discharge to home today with Eliquis 5mg BID -Will have patient FU with her PCP in the next week and have them order the Echo and Carotid Doppler studies
--- NOTE | 2021-10-05 10:47 | PCM.DCSUM1 ---
Discharge Summary - Hospital Course HPI Initial Comments: Rachel is a 76 y/o female who presented to the ER on 10-02-21 with chest pain and shortness of breath. She had seen her PCP in the [facility] who had recommended she get a CT of her chest. She had attempted to do so in [place], but then came here to [place]. Her CT was positive for multiple PEs in in both lungs. She has a history of PEs in the past and has been on Coumadin. Brief History: Patient started on a heparin gtt and placed on oxygen since she was hypoxic on arrival to the ER. She had an elevated Troponin level also on admission. Staff consulted specialty care in [place] and it was recommened that she transition to Eliquis and then get set up for an echocardiogram adn cardotid doppler study as an outpatient. Diagnosis: Stroke: No Modified Sandra Scale: No Symptoms at All Modified Mcpherson Scale Score: 0 - Discharge Data Discharge Date: 10/05/21 Discharge Disposition: Home, Self-Care 01 Condition: Good - Referral to Home Health Primary Care Physician: PCP Not In Area - Discharge Diagnosis/Problem(s) (1) Elevated troponin SNOMED Code(s): 975190714, 656252331, 607057736 ICD Code: R77.8 - OTHER SPECIFIED ABNORMALITIES OF PLASMA PROTEINS Status: Acute Priority: Medium Current Visit: Yes Problem Details: No further chest pain and troponin decreasing. No further action. (2) Hypoxia SNOMED Code(s): 036536407 ICD Code: R09.02 - HYPOXEMIA Status: Acute Priority: High Current Visit: Yes Problem Details: Has been on room air now since yesterday AM. Sats=93% this AM. Ambulating without any SOB. Using incentive spirometry. (3) Pulmonary emboli SNOMED Code(s): 44852777 ICD Code: I26.99 - OTHER PULMONARY EMBOLISM WITHOUT ACUTE COR PULMONALE Status: Acute Priority: High Current Visit: Yes Problem Details: Multiple Bilateral PE present, has hx of PEs in past with Coumadin use. Heparin gtt overnight and now have started Eliquis and plan to send pt home. Will have PCP coordinate outpatient echocardiogram and carotid dopplers. Patient has PCP in [facility]. Qualifiers: Chronicity: acute Acute cor pulmonale presence: without acute cor pulmonale - Patient Summary/Data Consults: Consultations 10/03/21 22:02 PT Evaluation and Treatment [CONS] Routine Recommended Follow-up Testing/Procedures: Echocardiogram, Carotid Doppler Study Hospital Course: Patient remained stable when stared on the Heparin gtt. She was placed on oxygen due to the Hypoxia and was weaned to room air by her 3rd hospital day. - Patient Instructions Diet: Usual Diet as Tolerated Activity: As Tolerated Driving: May Drive Today Showering/Bathing: May Shower Other/Special Instructions: -Make an appt to see your PCP in [place] in the next week. Have your PCP schedule an Echocardiogram and a Carotid Doppler Study. - Discharge Plan *PRESCRIPTION DRUG MONITORING PROGRAM REVIEWED*: Not Applicable *COPY OF PRESCRIPTION DRUG MONITORING REPORT IN PATIENT FELICE: Not Applicable Prescriptions/Med Rec: Apixaban [Eliquis] 5 mg PO BID 30 Days #60 tablet Home Medications: Home Meds Ferrous Sulfate 325 mg PO Q2D 10/03/21 [History] Fluticasone/Salmeterol [Advair 500-50] 2 puff INH BID 10/03/21 [History] Montelukast [Singulair] 10 mg PO DAILY 10/03/21 [History] Apixaban [Eliquis] 5 mg PO BID 30 Days #60 tablet 10/05/21 [Rx] Melatonin 6 mg PO BEDTIME PRN tablet 10/05/21 [Rx] Oxygen Therapy Mode: Room Air Patient Handouts: Pulmonary Embolism Forms: ED Department Discharge Referrals: PCP,Not In Area [Primary Care Provider] - - Discharge Summary/Plan Comment DC Time >30 min.: Yes Total # of Minutes for Discharge Time: 45 - Patient Data Vitals - Most Recent: Last Vital Signs Temp 36.4 C 10/05/21 08:08 Pulse 96 10/05/21 08:08 Resp 18 10/05/21 08:08 BP 128/60 10/05/21 08:08 Pulse Ox 93 L 10/05/21 08:08 Weight - Most Recent: 90.775 kg I&O - Last 24 hours: Intake & Output 10/04/21 10/05/21 10/05/21 22:59 06:59 14:59 Intake Total 360 400 200 Balance 360 400 200 Lab Results - Last 24 hrs: Laboratory Results - last 24 hr 10/04/21 10/05/21 10/05/21 Range/Units 20:10 08:00 08:00 WBC 8.1 (4.0-10.2) K/uL RBC 4.92 (3.77-5.09) M/uL Hgb 13.3 D (11.7-15.5) g/dL Hct 40.3 (34.0-46.0) % MCV 81.9 L (84.0-98.0) fL MCH 27.0 L (28.2-33.3) pg MCHC 33.0 (31.7-36.0) g/dL RDW 19.6 H (11.2-14.1) % Plt Count 241 (150-350) K/uL Neut % (Auto) 68.9 (45.0-80.0) % Lymph % (Auto) 18.1 (10.0-50.0) % [place] % (Auto) 10.2 (2.0-14.0) % Eos % (Auto) 2.2 (0.0-5.0) % Baso % (Auto) 0.6 (0.0-2.0) % Neut # (Auto) 5.61 (1.40-7.00) K/uL Lymph # (Auto) 1.47 (0.50-3.50) K/uL [place] # (Auto) 0.83 (0.00-1.00) K/uL Eos # (Auto) 0.18 (0.00-0.50) K/uL Baso # (Auto) 0.05 (0.00-0.20) K/uL APTT 47.8 H 55.6 H (23.6-29.8) SEC Sodium (136-145) mmol/L Potassium (3.5-5.1) mmol/L Chloride (98-107) mmol/L Carbon Dioxide (21.0-32.0) mmol/L Anion Gap (7-15) meq/L BUN (7-18) mg/dL Creatinine (0.51-1.17) mg/dL Est Cr Clr Drug Dosing mL/min Estimated GFR (MDRD) mL/min Glucose (70-99) mg/dL Calcium (8.5-10.1) mg/dL Troponin I High Sens (<=51) ng/L 10/05/21 Range/Units 08:00 WBC (4.0-10.2) K/uL RBC (3.77-5.09) M/uL Hgb (11.7-15.5) g/dL Hct (34.0-46.0) % MCV (84.0-98.0) fL MCH (28.2-33.3) pg MCHC (31.7-36.0) g/dL RDW (11.2-14.1) % Plt Count (150-350) K/uL Neut % (Auto) (45.0-80.0) % Lymph % (Auto) (10.0-50.0) % [place] % (Auto) (2.0-14.0) % Eos % (Auto) (0.0-5.0) % Baso % (Auto) (0.0-2.0) % Neut # (Auto) (1.40-7.00) K/uL Lymph # (Auto) (0.50-3.50) K/uL [place] # (Auto) (0.00-1.00) K/uL Eos # (Auto) (0.00-0.50) K/uL Baso # (Auto) (0.00-0.20) K/uL APTT (23.6-29.8) SEC Sodium 142 (136-145) mmol/L Potassium 3.7 (3.5-5.1) mmol/L Chloride 109 H (98-107) mmol/L Carbon Dioxide 23.6 (21.0-32.0) mmol/L Anion Gap 13.1 (7-15) meq/L BUN 12 (7-18) mg/dL Creatinine 1.04 (0.51-1.17) mg/dL Est Cr Clr Drug Dosing 39.12 mL/min Estimated GFR (MDRD) 51 mL/min Glucose 118 H (70-99) mg/dL Calcium 8.9 (8.5-10.1) mg/dL Troponin I High Sens 65 H* (<=51) ng/L YOGI Results - Last 24 hrs: Microbiology 10/03/21 16:08 Aerobic Blood Culture - Preliminary Blood - Venous - Lab Draw NO GROWTH AFTER 1 DAY Anaerobic Blood Culture - Preliminary NO GROWTH AFTER 1 DAY 10/03/21 16:01 Aerobic Blood Culture - Preliminary Blood - Venous NO GROWTH AFTER 1 DAY Anaerobic Blood Culture - Preliminary NO GROWTH AFTER 1 DAY Med Orders - Current: Current Medications Acetaminophen (Acetaminophen 325 Mg Tab) 650 mg PO Q4H PRN PRN Reason: analgesia/fever Last Admin: 10/05/21 01:22 Dose: 650 mg Documented by: Apixaban (Apixaban 5 Mg Tab) 5 mg PO BID [facility] Last Admin: 10/05/21 10:01 Dose: 5 mg Documented by: Calcium Carbonate/Glycine (Calcium Carbonate 500 Mg Tab.Chew) 500 mg PO Q4H PRN PRN Reason: Dyspepsia Ferrous Sulfate (Ferrous Sulfate 325 Mg Tab) 325 mg PO Q2D [facility] Last Admin: 10/03/21 20:35 Dose: 325 mg Documented by: Melatonin (Melatonin 3 Mg Tab) 6 mg PO BEDTIME PRN PRN Reason: Insomnia Mometasone Furoate/Formoterol Fumar (Formoterol/Mometasone 200-5 Mcg 8.8 Gm Inhaler) 2 puff IH BID [facility] Last Admin: 10/05/21 08:13 Dose: 2 puff Documented by: Montelukast Sodium (Montelukast 10 Mg Tab) 10 mg PO BEDTIME [facility] Last Admin: 10/04/21 19:25 Dose: 10 mg Documented by: Sodium Chloride (Sodium Chloride 0.9% 10 Ml Syringe) 10 ml FLUSH ASDIRECTED PRN PRN Reason: Keep Vein Open Discontinued Medications Heparin Sodium (Porcine) (Heparin Sodium 5,000 Units/Ml Vial) Confirm Administered Dose 5,000 units .ROUTE .STK-MED ONE Stop: 10/03/21 17:30 Last Admin: 10/03/21 18:18 Dose: Not Given Documented by: Heparin Sodium (Porcine) (Heparin Sodium 5,000 Units/Ml Vial) 4,000 units IVPUSH ONETIME ONE Stop: 10/03/21 17:38 Last Admin: 10/03/21 18:00 Dose: 4,000 units Documented by: Heparin Sodium/Sodium Chloride (Heparin 25,000 Units In 1/2 Ns 500 Ml) 500 mls @ 21.772 mls/hr IV TITRATE MANJU; Protocol Last Admin: 10/04/21 16:07 Dose: 12 units/kg/hr, 21.772 mls/hr Documented by: Iopamidol (Iopamidol 755 Mg/Ml 100 Ml Bottle) 100 ml IVPUSH ONETIME STA Stop: 10/03/21 16:47 Last Admin: 10/03/21 17:27 Dose: 100 ml Documented by: Montelukast Sodium (Montelukast 10 Mg Tab) 10 mg PO DAILY MANJU Last Admin: 10/04/21 09:30 Dose: Not Given Documented by:
== END 2021-10-05 10:51 | disposition home or self-care (01) | DRG 176 ==
LOC: LL.ED 14:55 → LL.MS 17:59
PROVIDERS: ADMIT Physician Assistant; ATTEND Physician Assistant
DX: I26.99 Other pulmonary embolism without acute cor pulmonale (principal); Z96.643 Presence of artificial hip joint, bilateral; Z20.822 Contact with and (suspected) exposure to COVID-19; R77.8 Other specified abnormalities of plasma proteins; Z88.8 Allergy status to other drugs, medicaments and biological substances; R09.02 Hypoxemia; Z86.711 Personal history of pulmonary embolism; Z79.01 Long term (current) use of anticoagulants; Z88.6 Allergy status to analgesic agent; Z79.899 Other long term (current) drug therapy
CPT/HCPCS: 0241U; 36415; 36600; 71275; 80048; 80053; 82803; 83605; 84484; 85025; 85379; 85610; 85730; 86140; 87040; 93005; 94640; 99285-25; A9270-GY; J1644; Q9967

== ENCOUNTER 2024-01-17 09:15 | Emergency (ER) | payer MEDICARE, OTHER ==
[2024-01-17 10:12] LABS: BASOPHILS ABSOLUTE AUTO 0.04 K/uL (0.00-0.20); BASOPHILS PERCENT AUTO 0.4 % (0.0-2.0); EOSINOPHILS ABSOLUTE AUTO 0.09 K/uL (0.00-0.50); EOSINOPHILS PERCENT AUTO 0.8 % (0.0-5.0); HEMATOCRIT 35.9 % (34.0-46.0); HEMOGLOBIN 11.8 g/dL (11.7-15.5); LYMPHOCYTES ABSOLUTE AUTO 1.42 K/uL (0.50-3.50); LYMPHOCYTES PERCENT AUTO 13.3 % (10.0-50.0); MEAN CORPUSCULAR HEMOGLOBIN 29.5 pg (28.2-33.3); MEAN CORPUSCULAR HGB CONC 32.9 g/dL (31.7-36.0); MEAN CORPUSCULAR VOLUME 89.8 fL (84.0-98.0); MONOCYTES ABSOLUTE AUTO 0.97 K/uL (0.00-1.00); MONOCYTES PERCENT AUTO 9.1 % (2.0-14.0); NEUTROPHILS ABSOLUTE AUTO 8.16 K/uL (1.40-7.00); NEUTROPHILS PERCENT AUTO 76.4 % (45.0-80.0); PLATELET COUNT,PLT 275 K/uL (150-350); RED CELL DISTRIBUTION WIDTH 14.5 % (11.2-14.1); WHITE BLOOD CELL COUNT,WBC 10.7 K/uL (4.0-10.2)
[2024-01-17 10:30] LABS: ALBUMIN 3.6 g/dL (3.4-5.0); ANION GAP 10.5 meq/L (7-15); BILIRUBIN TOTAL 0.6 mg/dL (0.2-1.0); CALCIUM 9.3 mg/dL (8.5-10.1); CARBON DIOXIDE,CO2 26.5 mmol/L (21.0-32.0); CREATININE 0.99 mg/dL (0.51-1.17); EST CRCL DRUG DOSING (CG) 39.79 mL/min; MAGNESIUM 2.1 mg/dL (1.8-2.4); POTASSIUM,K 4.3 mmol/L (3.5-5.1); PROTEIN TOTAL,TP 6.8 g/dL (6.4-8.2)
== END 2024-01-17 10:57 | disposition home or self-care (01) ==
LOC: LL.ED 09:15
DX: M79.644 Pain in right finger(s) (principal); J45.909 Unspecified asthma, uncomplicated; E66.9 Obesity, unspecified; Z68.31 Body mass index [BMI] 31.0-31.9, adult; Z88.6 Allergy status to analgesic agent; Z79.01 Long term (current) use of anticoagulants; Z79.52 Long term (current) use of systemic steroids; Z79.899 Other long term (current) drug therapy
CPT/HCPCS: 36415; 80053; 83735; 85025; 99283